=== PATIENT | female | born 1995 | race Caucasian/White ===

== ENCOUNTER 2017-09-03 21:49 | Emergency (ER) | payer BC ==
[~2017-09-03] VITALS: Ht 160 cm; Wt 71.2 kg
[2017-09-03 21:52] VITALS: TEMP 36.9; Ht 160 cm; Wt 71.2 kg
[2017-09-03] MEDS ORDERED: MoRPHine SULFATE 10 MG/ML CARP/VIAL IV STA (22:10)
[2017-09-03] MEDS ORDERED: ONDANSETRON INJ 2 MG/ML 2 ML VIAL IV STA (22:10)
[2017-09-03] MEDS ORDERED: KETOROLAC TROMETHAMINE 30 MG/ML VIAL IV STA (22:10)
[2017-09-03] MEDS ORDERED: SODIUM CHLORIDE 0.9% 1000ML 1,000 ML IV STA (22:10)
[2017-09-03 22:38] LABS: BASO % 0.5 %; BASO ABS # 0.05 K/uL (0-0.2); EOS % 4.7 %; EOS ABS # 0.43 K/uL (0-0.5); HEMATOCRIT 36.4 % (37-47); HEMOGLOBIN 11.5 g/dL (12.0-16.0); IG# 0.03 K/uL (0.00-0.02); LYMPH % 29.6 %; LYMPH ABS # 2.73 K/uL (1.2-3.4); MEAN CELL VOLUME 81.6 fL (80-100); MEAN CORPUSCULAR HEMOGLOBIN 25.8 pg (25-34); MEAN CORPUSCULAR HGB CONC 31.6 g/dl (32-36); MEAN PLATELET VOLUME 10.5 fL (7.4-10.4); MONO % 8.5 %; MONO ABS # 0.78 K/uL (0.11-0.59); NEUT % 56.4 %; NEUT ABS # 5.21 K/uL (1.4-6.5); PLATELET COUNT 322 K/uL (130-400); RED CELL DISTRIBUTION WIDTH CV 15.8 % (11.5-14.5); RED CELL DISTRIBUTION WIDTH SD 46.8 fL (36.4-46.3); WHITE BLOOD COUNT 9.23 K/uL (4.8-10.8)
[2017-09-03 22:59] LABS: ALBUMIN 3.9 gm/dl (3.4-5.0); CREATININE 1.2 mg/dl (0.60-1.20); POTASSIUM 3.7 mmol/L (3.5-5.1); TOTAL PROTEIN 7.7 gm/dl (6.4-8.2)
--- NOTE | 2017-09-03 22:59 | DIAGNOSTIC IMAGING REPORT ---
CT SCAN OF THE ABDOMEN AND PELVIS WITHOUT CONTRAST CLINICAL HISTORY: Left flank pain COMPARISON STUDY: No previous studies for comparison. TECHNIQUE: CT scan of the abdomen and pelvis was performed from the lung bases to the proximal femurs. Images are reviewed in the axial, sagittal, and coronal planes. IV contrast was not administered for this examination. A dose lowering technique was utilized adhering to the principles of ALARA. CT DOSE: 588.37 mGy.cm FINDINGS: Lower chest: The heart is normal in size and configuration, without pericardial effusion. The lung bases and pleural spaces are clear. Liver: The unenhanced liver is normal in size, contour, and attenuation. There is no intrahepatic biliary ductal dilatation. Gallbladder: Unremarkable. Spleen: Normal in size and attenuation. Pancreas: Unremarkable. Adrenal glands: Unremarkable. Kidneys: There is mild fullness left renal collecting system. There is a 3.5 mm left pelvic basin calcification. This may represent a distal ureteral calculus. A phlebolith could appear similar. Bowel: There are no transition zones indicate bowel obstruction. There is no evidence of acute diverticulitis. There is no evidence of acute appendicitis. Peritoneum: There is no intraperitoneal free air or abdominal ascites. Vasculature: The abdominal aorta is normal in course and caliber. Adenopathy: None. Pelvic viscera: The bladder, and pelvic viscera are unremarkable. Skeletal structures: No destructive osseous lesions are seen. IMPRESSION: 1. Difficult study to interpret given the paucity of intra-abdominal fat 2. 3.5 mm left pelvic basin calcification, likely representing a distal left ureteral calculus given the reported left flank pain and the mild fullness of the left renal collecting system 3. No evidence of bowel obstruction. No evidence of free air 4. No evidence of acute diverticulitis. No evidence of acute appendicitis. Electronically signed by: Myron Siegel M.D. 09/03/2017 10:58 PM Dictated Date/Time: 09/03/2017 10:54 PM
[2017-09-03] MEDS ORDERED: OXYC-737 PO (23:28)
[2017-09-03] MEDS ORDERED: OXYCODONE IR HOME PACK PO ONE (23:30)
[2017-09-03 23:50] VITALS: BP 124/79; PULSE 68; O2SAT 98
--- NOTE | 2017-09-04 01:57 | EMERGENCY ROOM VISIT NOTE ---
History Report prepared by Junieibtricia: Marcial Shafer Under the Supervision of: Dr. Cesar Davalos D.O. First contact with patient: 21:57 Chief Complaint: FLANK PAIN Stated Complaint: BACK PAIN,NAUSEA History of Present Illness The patient is a 21 year old female who presents to the Emergency Room with complaints of intermittent left flank pain that began yesterday. She rates her pain as a 9/10 in severity. She reports her pain is worsened with movement. The patient states that the pain radiates into her abdomen. She states that she also has been experiencing nausea. The patient reports she went to [facility] today and had a urine culture and x-ray done. She reports they told her she has blood in her urine and she may have a kidney stone. The patient was sent to the ED. She denies vomiting, diarrhea, pain with urination, hematuria, vaginal bleeding, and vaginal discharge. The patient states that her last menstrual period was 2.5 weeks ago. Source of History: patient Onset: yesterday Position: other (left flank) Symptom Intensity: 9/10 Timing: intermittent Modifying Factors (Worsening): movement Associated Symptoms: + nausea, + abdominal pain, No vomiting, No diarrhea, No urinary symptoms Note: Denies: vaginal pain or bleeding Review of Systems See HPI for pertinent positives & negatives. A total of 10 systems reviewed and were otherwise negative. Past Medical & Surgical Medical Problems: (1) Migraine Family History Patient reports no known family medical history. Social History Smoking Status: Never Smoker Housing Status: lives with family Occupation Status: student Current/Historical Medications Scheduled PRN Oxycodone Immediate Rel Tab (Roxicodone Ir), 5 MG PO Q6H PRN for Pain Allergies Coded Allergies: No Known Allergies (Unverified , 09/03/17) Physical Exam Vital Signs Date Time Temp Pulse Resp B/P (MAP) Pulse Ox O2 Delivery O2 Flow Rate FiO2 09/03/17 23:50 68 18 124/79 98 09/03/17 23:24 64 16 122/63 99 Room Air 09/03/17 21:52 36.9 77 18 124/81 99 Room Air Physical Exam GENERAL: Laying in bed, holding left flank, in moderate distress. EYE EXAM: normal conjunctiva. OROPHARYNX: no exudate, no erythema, lips, buccal mucosa, and tongue normal and mucous membranes are moist NECK: supple, no nuchal rigidity, no adenopathy, non-tender LUNGS: Clear to auscultation. Normal chest wall mechanics HEART: no murmurs, S1 normal and S2 normal ABDOMEN: abdomen soft, non-tender, normo-active bowel sounds, no masses, no rebound or guarding. BACK: Back is symmetrical on inspection and there is no deformity, no midline tenderness, Left CVA tenderness. SKIN: no rashes and no bruising UPPER EXTREMITIES: upper extremities are grossly normal. LOWER EXTREMITIES: No pitting edema. NEURO EXAM: Normal sensorium, cranial nerves II-XII grossly intact, normal speech, no gross weakness of arms, no gross weakness of legs. Medical Decision & Procedures ER Provider Diagnostic Interpretation: Radiology results as stated below per my review and the radiologist's interpretation: CT SCAN OF THE ABDOMEN AND PELVIS WITHOUT CONTRAST CLINICAL HISTORY: Left flank pain COMPARISON STUDY: No previous studies for comparison. TECHNIQUE: CT scan of the abdomen and pelvis was performed from the lung bases to the proximal femurs. Images are reviewed in the axial, sagittal, and coronal planes. IV contrast was not administered for this examination. A dose lowering technique was utilized adhering to the principles of ALARA. CT DOSE: 588.37 mGy.cm FINDINGS: Lower chest: The heart is normal in size and configuration, without pericardial effusion. The lung bases and pleural spaces are clear. Liver: The unenhanced liver is normal in size, contour, and attenuation. There is no intrahepatic biliary ductal dilatation. Gallbladder: Unremarkable. Spleen: Normal in size and attenuation. Pancreas: Unremarkable. Adrenal glands: Unremarkable. Kidneys: There is mild fullness left renal collecting system. There is a 3.5 mm left pelvic basin calcification. This may represent a distal ureteral calculus. A phlebolith could appear similar. Bowel: There are no transition zones indicate bowel obstruction. There is no evidence of acute diverticulitis. There is no evidence of acute appendicitis. Peritoneum: There is no intraperitoneal free air or abdominal ascites. Vasculature: The abdominal aorta is normal in course and caliber. Adenopathy: None. Pelvic viscera: The bladder, and pelvic viscera are unremarkable. Skeletal structures: No destructive osseous lesions are seen. IMPRESSION: 1. Difficult study to interpret given the paucity of intra-abdominal fat 2. 3.5 mm left pelvic basin calcification, likely representing a distal left ureteral calculus given the reported left flank pain and the mild fullness of the left renal collecting system 3. No evidence of bowel obstruction. No evidence of free air 4. No evidence of acute diverticulitis. No evidence of acute appendicitis. Electronically signed by: Myron Siegel M.D. 09/03/2017 10:58 PM Dictated Date/Time: 09/03/2017 10:54 PM Laboratory Results 09/03/17 22:20 Red Blood Count 4.46, Mean Corpuscular Volume 81.6, Mean Corpuscular Hemoglobin 25.8, Mean Corpuscular Hemoglobin Concent 31.6, Mean Platelet Volume 10.5, Neutrophils (%) (Auto) 56.4, Lymphocytes (%) (Auto) 29.6, Monocytes (%) (Auto) 8.5, Eosinophils (%) (Auto) 4.7, Basophils (%) (Auto) 0.5, Neutrophils # (Auto) 5.21, Lymphocytes # (Auto) 2.73, Monocytes # (Auto) 0.78, Eosinophils # (Auto) 0.43, Basophils # (Auto) 0.05 09/03/17 22:20 Test 09/03/17 22:20 09/03/17 22:50 White Blood Count 9.23 K/uL (4.8-10.8) Red Blood Count 4.46 M/uL (4.2-5.4) Hemoglobin 11.5 g/dL (12.0-16.0) Hematocrit 36.4 % (37-47) Mean Corpuscular Volume 81.6 fL (80-100) Mean Corpuscular Hemoglobin 25.8 pg (25-34) Mean Corpuscular Hemoglobin Concent 31.6 g/dl (32-36) Platelet Count 322 K/uL (130-400) Mean Platelet Volume 10.5 fL (7.4-10.4) Neutrophils (%) (Auto) 56.4 % Lymphocytes (%) (Auto) 29.6 % Monocytes (%) (Auto) 8.5 % Eosinophils (%) (Auto) 4.7 % Basophils (%) (Auto) 0.5 % Neutrophils # (Auto) 5.21 K/uL (1.4-6.5) Lymphocytes # (Auto) 2.73 K/uL (1.2-3.4) Monocytes # (Auto) 0.78 K/uL (0.11-0.59) Eosinophils # (Auto) 0.43 K/uL (0-0.5) Basophils # (Auto) 0.05 K/uL (0-0.2) RDW Standard Deviation 46.8 fL (36.4-46.3) RDW Coefficient of Variation 15.8 % (11.5-14.5) Immature Granulocyte % (Auto) 0.3 % Immature Granulocyte # (Auto) 0.03 K/uL (0.00-0.02) Urine Color YELLOW Urine Appearance CLOUDY (CLEAR) Urine pH 5.0 (4.5-7.5) Urine Specific [place] 1.027 (1.000-1.030) Urine Protein 1+ (NEG) Urine Glucose (UA) NEG (NEG) Urine Ketones NEG (NEG) Urine Occult Blood 3+ (NEG) Urine Nitrite NEG (NEG) Urine Bilirubin NEG (NEG) Urine Urobilinogen NEG (NEG) Urine Leukocyte Esterase NEG (NEG) Urine WBC (Auto) 1-5 /hpf (0-5) Urine RBC (Auto) >30 /hpf (0-4) Urine Hyaline Casts (Auto) 1-5 /lpf (0-5) Urine Epithelial Cells (Auto) 20-30 /lpf (0-5) Urine Bacteria (Auto) NEG (NEG) Anion Gap 7.0 mmol/L (3-11) Est Creatinine Clear Calc Drug Dose 70.7 ml/min Estimated GFR () 75.3 Estimated GFR (Non- 65.0 BUN/Creatinine Ratio 13.9 (10-20) Calcium Level 9.0 mg/dl (8.5-10.1) Total Bilirubin 0.5 mg/dl (0.2-1) Direct Bilirubin 0.2 mg/dl (0-0.2) Aspartate Amino Transf (AST/SGOT) 23 U/L (15-37) Alanine Aminotransferase (ALT/SGPT) 20 U/L (12-78) Alkaline Phosphatase 80 U/L (45-117) Total Protein 7.7 gm/dl (6.4-8.2) Albumin 3.9 gm/dl (3.4-5.0) Lipase 95 U/L (73-393) Urine Test NEG (NEG) Laboratory results per my review. Medications Administered Medications (Trade) Dose Ordered Sig/Chema Route Start Time Stop Time Status Last Admin Dose Admin Sodium Chloride 1,000 ml @ 999 mls/hr Q1H1M STAT IV 09/03/17 22:10 09/03/17 23:10 DC 09/03/17 22:33 999 MLS/HR Morphine Sulfate (MoRPHine SULFATE INJ) 6 mg NOW STAT IV 09/03/17 22:10 09/03/17 22:12 DC 09/03/17 22:32 6 MG Ketorolac Tromethamine (Toradol Inj) 30 mg NOW STAT IV 09/03/17 22:10 09/03/17 22:12 DC 09/03/17 22:32 30 MG Ondansetron HCl (Zofran Inj) 4 mg NOW STAT IV 09/03/17 22:10 09/03/17 22:12 DC 09/03/17 22:31 4 MG Oxycodone HCl (Roxicodone Immediate Rel 5MG Home Pack) 1 homepack UD ONCE PO 09/03/17 23:30 09/03/17 23:31 DC 09/03/17 23:47 1 HOMEPACK ED Course ED COURSE: Vital signs were reviewed and showed normal. The patients medical record was reviewed The above diagnostic studies were performed and reviewed. ED treatments and interventions as stated above. 2202: The patient was evaluated in room B09. A complete history and physical examination was performed. 2210: Ordered Zofran Injection 4 mg IV, Toradol Injection 30 mg IV, Morphine Sulfate 6 mg IV, Sodium Chloride 1000 ml @ 999 mls/hr IV. 2324: Upon reevaluation, the patient is resting comfortably. I discussed my findings with the patient and she understands and agrees with the treatment plan. Based on the patients age, coexisting illnesses, exam and lab findings the decision to treat as an outpatient was made. The patient remained stable while under my care. The patient appeared well at the time of discharge. 2330: Ordered Oxycodone HCl 1 homepack PO. Medical Decision Differential Diagnosis includes but is not limited to ischemic Stroke, hemorrhagic stroke, bells palsy, mass, neoplasm, migraine headache, seizure, subarachnoid hemorrhage, TIA, and transient global amnesia. Patient is a 21-year-old female who presents the ER for left flank pain associate with hematuria. Last menstrual period was 2 and half weeks ago. CBC along with BMP, LFTs, bilirubin and lipase was unremarkable. UA without infection. was negative. CT confirms a 3.5 mm stone. Patient was given IV Toradol and morphine and felt significant better. She is discharged follow-up with PCP as an outpatient. She was given a strainer. She is also given OxyIR. PDMP was reviewed and was negative. Discussed with Pt concerning signs and symptoms to watch out for. Pt was instructed to follow up with their PCP and discussed with the patient their option to return to the ED at anytime for persistent or worsening symptoms. The appropriate anticipatory guidance and out-patient management, including indications for return to the emergency department, were explained at length to the patient and understood. Medication Reconcilliation Current Medication List: was personally reviewed by me Blood Pressure Screening Patient's blood pressure: Normal blood pressure Impression Primary Impression: Renal colic Scribe Attestation The scribe's documentation has been prepared under my direction and personally reviewed by me in its entirety. I confirm that the note above accurately reflects all work, treatment, procedures, and medical decision making performed by me. Departure Information Dispostion Home / Self-Care Prescriptions Oxycodone Immediate Rel Tab (ROXICODONE IR) 5 Mg Tab 5 MG PO Q6H Y for Pain, #10 TAB Prov: Cesar Davalos, DO 09/03/17 Referrals [facility] Forms HOME CARE DOCUMENTATION FORM, IMPORTANT VISIT INFORMATION Patient Instructions ED Stone Renal W Colic, [facility] Additional Instructions Please follow up with your primary care doctor with in the next 24 hours. Any worsening of your symptoms, please return to the ED immediately. This includes any fevers greater than 100.4, worsening pain, chest pain, shortness breath, persistent nausea, vomiting, unable to eat or drink, or any other concerning signs or symptoms from your standpoint. Please strain your urine and take the stone to your PCP. You were given medications during this visit that will inhibit your ability to drive, operate machinery and work. Please do NOT drive, operate machinery or work for the next 12hrs. You were also given a prescription for a narcotic. While taking this medication you should also not drive, operate machinery and or work.
== END 2017-09-03 23:50 | disposition home or self-care (01) ==
LOC: C.EDB 21:50
DX: N23 Unspecified renal colic (principal)